=== PATIENT | male | born 1960 | race American Indian/Alaskan Native ===

== ENCOUNTER 2022-05-17 11:22 | Emergency (ER) | payer BC ==
[~2022-05-17] VITALS: Ht 185.4 cm; Wt 97.0 kg
[2022-05-17 11:32] VITALS: BP 172/89
[2022-05-17] MEDS ORDERED: proparacaine 0.5% ophthalmic drops 15ml EACHEYE ONE (11:40)
[2022-05-17] MEDS ORDERED: ketorolac tromethamine 0.5% ophthalmic drops RIGHTEYE ONE (12:00)
[2022-05-17] MEDS ORDERED: ciprofloxacin 0.3% 2.5ml ophthalmic solution RIGHTEYE ONE (12:00)
== END 2022-05-17 13:02 | disposition home or self-care (01) ==
LOC: ER 11:22
DX: S05.8X1A Other injuries of right eye and orbit, initial encounter (principal); S05.01XA Injury of conjunctiva and corneal abrasion without foreign body, right eye, initial encounter; Z88.0 Allergy status to penicillin; Z88.2 Allergy status to sulfonamides; X58.XXXA Exposure to other specified factors, initial encounter; Y93.89 Activity, other specified; Y92.89 Other specified places as the place of occurrence of the external cause; Y99.8 Other external cause status
CPT/HCPCS: 99283